=== PATIENT | female | born 1950 | race African-American/Black ===

== ENCOUNTER 2017-08-18 19:52 | Inpatient (IN) | payer OTHER ==
[~2017-08-18] VITALS: Ht 170.2 cm; Wt 96.3 kg
[2017-08-18] MEDS ORDERED: ETOMIDATE (2MG/ML) 20ML VIAL IV ONE ×2 (22:30→23:00)
[2017-08-18] MEDS ORDERED: SUCCINYLCHOLINE CHLORIDE 20 MG/ML 10ML VIAL IV ONE ×2 (22:30→23:00)
[2017-08-18] MEDS ORDERED: SODIUM CHLORIDE 0.9% 3,000 ML IV ONE (22:45)
[2017-08-18] MEDS ORDERED: cefTRIAXone 1GM/10ml IVPUSH 10 ML IV ONE (22:45)
[2017-08-18 23:04] LABS: Hematocrit 30.4 % (36.0-46.0); Hemoglobin 8.8 g/dL (12.2-16.2); Mean Corpuscular Hemoglobin 25.3 pg (28.0-32.0); Mean Corpuscular Hgb Conc. 28.8 g/dL (32.0-36.0); Mean Corpuscular Volume 87.9 fL (80.0-100.0); Platelet Count (auto) 364 10^3/uL (140-450); Red Blood Cells 3.46 10^6/uL (4.0-5.20)
[2017-08-18 23:08] VITALS: BP 51/37
[2017-08-18 23:14] LABS: White Blood Cell 32.3 10^3/uL (4.4-10.8)
[2017-08-18 23:15] LABS: Red Cell Distribution Width 20.1 % (11.8-14.3)
[2017-08-18] MEDS ORDERED: VANCOMYCIN 1GM/250ML 250 ML IV ONE (23:15)
[2017-08-18 23:16] LABS: Basophils % (manual) 0 (0.0-2.0); Blast Cells 0; Eosinophils % (manual) 0 (0-7); Promyelocytes % 0; Reactive Lymphocytes 0
[2017-08-18] MEDS ORDERED: MIDAZOLAM DRIP 50 mg/50mL 50 ML IV SCH (23:26)
[2017-08-18 23:37] LABS: Sodium 134 mmol/L (136-145)
[2017-08-18] MEDS: NOREPINEPHRINE 8 MG/250ML KIT 250 ML IV SCH (23:37)
[2017-08-18 23:38] LABS: Alanine Aminotransferase 8 U/L (13-56); Alkaline Phosphatase 149 U/L (45-117); Anion Gap 27 (5-15); Aspartate Aminotransferase 27 U/L (15-37); BUN/Creatinine Ratio 20.1; Bilirubin, Total 0.5 mg/dL (0.2-1.0); Blood Urea Nitrogen 66 mg/dL (7-18); Calcium 8.7 mg/dL (8.5-10.1); Chloride 100 mmol/L (98-107); GFR African American 18 mL/min; GFR Non-African American 15 mL/min; Glucose 65 mg/dL (74-106)
[2017-08-18 23:39] LABS: Albumin 1.5 g/dL (3.4-5.0); Total Protein 5.8 g/dL (6.4-8.2)
[2017-08-18 23:40] LABS: Blood Alcohol < 3.0 mg/dL (0-5)
[2017-08-18 23:41] LABS: Carbon Dioxide 7 mmol/L (21-32); Potassium 6.6 mmol/L (3.5-5.1)
[2017-08-19] VITALS (41 sets, daily range): BP systolic 50–168; BP diastolic 27–89
[2017-08-19] MEDS ORDERED: CALCIUM GLUC 4.65meq/50ml D5AE 50 ML IV ONE
[2017-08-19] MEDS ORDERED: DEXTROSE (50%) 50ML SYRG IV ONE
[2017-08-19 00:19] LABS: Band Neutrophils % (manual) 12; Lymphocytes % (manual) 21 (10.0-50.0); Metamyelocytes % 3; Monocytes % (manual) 2 (0-12); Myelocytes % 1
[2017-08-19 00:22] LABS: Lactic Acid w/Reflex 7.5 mmol/L (0.4-2.0)
[2017-08-19] MEDS ORDERED: EPINEPHrine HCL INJECTION 4 MG in SODIUM CHL 0.9% 250 ML IV ONE (00:45)
[2017-08-19] MEDS ORDERED: DOPamine 1600MCG/ML D5W 250 ML IV ONE (01:00)
[2017-08-19] MEDS ORDERED: SODIUM BICARBONATE 8.4 % INJ 50ML VIAL IV ONE ×6 (01:00→11:00)
[2017-08-19] MEDS ORDERED: PHENYLEPHRINE IV 250 ML IV ONE ×8 (01:27→22:07)
[2017-08-19] MEDS ORDERED: SODIUM BICARBONATE 50ML VIAL 100 ML in SODIUM CHL 0.9% 1,000 ML IV ONE (01:30)
[2017-08-19] MEDS ORDERED: PHENYLEPHRINE INJ 20 MG in D5W 5% 248 ML IV ONE (01:30)
[2017-08-19] MEDS ORDERED: DEXTROSE 10% 1,000 ML IV ONE ×2 (01:30→14:15)
[2017-08-19 01:45] LABS: Alcohol, Urine < 3.0 mg/dL (0-5); Amphetamine Screen, Urine NEGATIVE (NEGATIVE); Barbiturate Scree,Urine NEGATIVE (NEGATIVE); Benzodiazephine Screen, Urine NEGATIVE (NEGATIVE); Cannabinoid Screen, Urine POSITIVE (NEGATIVE); Cocaine Screen, Urine NEGATIVE (NEGATIVE); Opiate Scree,Urine NEGATIVE (NEGATIVE); Phencyclidine Screen, Urine NEGATIVE (NEGATIVE); Urine Bacteria MANY /hpf (None Seen); Urine Blood 2+ /uL (Negative); Urine Specific Gravity 1.015 (1.001-1.035); Urine WBC 826 /hpf (0 - 5); Urine WBC Clumps PRESENT /hpf (None Seen)
[2017-08-19] MEDS ORDERED: PIPERACILLIN-TAZOB 3.375GM 50 ML IV ONE (02:00)
[2017-08-19] MEDS ORDERED: SODIUM POLYSTYRENE SULF 15GM/60ML SUSP NG ONE (02:30)
[2017-08-19] MEDS ORDERED: VASOPRESSIN 50 UNITS in D5W 5% 247.5 ML IV ONE (02:30)
[2017-08-19] MEDS ORDERED: VASOPRESSIN 20 UNIT/ML ONE ×3 (02:31→13:31)
[2017-08-19] MEDS ORDERED: ALBUMIN 5% 250 ML IV ONE ×3 (02:33→06:30)
[2017-08-19] MEDS ORDERED: NITROGLYCERIN 0.4 MG SL TAB SL PRN (02:45)
[2017-08-19] MEDS ORDERED: ONDANSETRON HCL 4 MG/2 ML VIAL IV PRN (02:45)
[2017-08-19] MEDS ORDERED: VASOPRESSIN 50 UNITS in D5W 5% 247.5 ML IV SCH (02:45)
[2017-08-19] MEDS ORDERED: ALBUTEROL SULF 2.5 MG/0.5ML(0.5%) NEB SOLN NEB PRN (02:45)
[2017-08-19] MEDS ORDERED: ACETAMINOPHEN 325 MG TAB PO PRN (02:45)
[2017-08-19] MEDS ORDERED: MORPHINE SULFATE 4 MG/ML SYR/VIAL IV PRN (02:45)
[2017-08-19] MEDS ORDERED: DEXTROSE (50%) 50ML SYRG IV PRN (02:45)
[2017-08-19] MEDS ORDERED: SODIUM BICARBONATE 50ML VIAL 100 ML in SOD CHL 0.45% 1,000 ML IV ONE (02:45)
[2017-08-19] MEDS ORDERED: SODIUM BICARBONATE 8.4% INJ 50ML SYRINGE ONE ×2 (03:04→05:43)
[2017-08-19] MEDS ORDERED: MIDAZOLAM HCL 5 MG/ML-1ML VIAL ONE (03:08)
[2017-08-19] MEDS ORDERED: MIDAZOLAM HCL 5 MG/ML-1ML VIAL IV ONE (03:15)
[2017-08-19] MEDS ORDERED: LACTULOSE 20Gm/30ML SOLN NG ONE (03:15)
[2017-08-19] MEDS ORDERED: metroNIDAZOLE 500MG/100ML 100 ML IV ONE (04:00)
[2017-08-19] MEDS: LINEZOLID 600MG/300ML 300 ML IV SCH ×2 (04:00→16:59)
[2017-08-19 05:26] LABS: Hemoglobin 7.9 g/dL (12.2-16.2)
[2017-08-19 05:28] LABS: Mean Corpuscular Hemoglobin 25.5 pg (28.0-32.0); Mean Corpuscular Hgb Conc. 29.4 g/dL (32.0-36.0); Mean Corpuscular Volume 86.8 fL (80.0-100.0); Platelet Count (auto) 236 10^3/uL (140-450); Red Cell Distribution Width 19.3 % (11.8-14.3); White Blood Cell 10.7 10^3/uL (4.4-10.8)
[2017-08-19 05:34] LABS: Basophils % (manual) 0 (0.0-2.0); Blast Cells 0; Promyelocytes % 0; Reactive Lymphocytes 0
[2017-08-19 05:45] LABS: Albumin 1.5 g/dL (3.4-5.0); BUN/Creatinine Ratio 19.2; Calcium 7.4 mg/dL (8.5-10.1); Potassium 4.7 mmol/L (3.5-5.1)
[2017-08-19 05:48] LABS: Bilirubin, Total 0.6 mg/dL (0.2-1.0); Total Protein 4.8 g/dL (6.4-8.2)
[2017-08-19] MEDS: PIPERACILLIN-TAZOB 2.25GM 50 ML IV SCH ×3 (06:00→21:44)
[2017-08-19] MEDS: ACCU-CHEK COMFORT CURVE STRIP VI SCH ×3 (06:00→18:00)
[2017-08-19] MEDS: InsuLIN REG 1unit/0.01ml Soln (100units/ml) SC SCH ×3 (06:00→18:57)
[2017-08-19] MEDS ORDERED: ATROPINE SULFATE 0.4 MG/1 ML VIAL ONE (06:08)
[2017-08-19 06:29] LABS: Band Neutrophils % (manual) 14; Eosinophils % (manual) 1 (0-7); Lymphocytes % (manual) 26 (10.0-50.0); Metamyelocytes % 6; Monocytes % (manual) 12 (0-12); Myelocytes % 5
[2017-08-19] MEDS ORDERED: EPINEPHrine HCL INJECTION 4 MG in SODIUM CHL 0.9% 250 ML IV SCH (07:15)
[2017-08-19] MEDS ORDERED: PHENYLEPHRINE HCL 10 MG/ML VL ONE ×3 (08:06→22:08)
[2017-08-19] MEDS ORDERED: SODIUM BICARBONATE 50ML VIAL 150 ML in SODIUM CHL 0.9% 1,000 ML IV SCH (08:15)
[2017-08-19] MEDS: SODIUM BICARBONATE 50ML VIAL 150 ML in SODIUM CHLORIDE 0.9% 1,000 ML IV SCH ×2 (08:34→14:00)
[2017-08-19] MEDS ORDERED: PATIENTS OWN MEDICATION (zyvox 600 MG) IV SCH (10:00)
[2017-08-19] MEDS ORDERED: LACTULOSE 20Gm/30ML SOLN NG SCH (10:00)
[2017-08-19] MEDS ORDERED: SODIUM CHLORIDE 0.9% 2,000 ML IV ONE (11:00)
[2017-08-19] MEDS ORDERED: HYDROCORTISONE SOD SUCC 100 MG/2ML INJ VIAL IV ONE (14:00)
[2017-08-19] MEDS: HYDROCORTISONE SOD SUCC 100 MG/2ML INJ VIAL IV SCH ×2 (14:00→21:44)
[2017-08-19] MEDS: NOREPINEPHRINE 8 MG/250ML KIT 250 ML IV SCH ×2 (14:00→18:50)
[2017-08-19] MEDS: metroNIDAZOLE 500MG/100ML 100 ML IV SCH ×2 (14:16→21:43)
[2017-08-19] MEDS ORDERED: PANTOPRAZOLE 40 MG/10 ML VIAL IV ONE (14:30)
[2017-08-19] MEDS ORDERED: EPINEPHrine HCL 250 ML IV ONE (15:22)
[2017-08-19] MEDS ORDERED: PHENYLEPHRINE INJ 40 MG in SODIUM CHL 0.9% 250 ML IV SCH (15:30)
[2017-08-19] MEDS ORDERED: LOVA20TA4 PO (17:10)
[2017-08-19] MEDS ORDERED: NAPR-476 PO (17:10)
[2017-08-19] MEDS ORDERED: AMLO5TAB2 PO (17:10)
[2017-08-19] MEDS ORDERED: HYDR25TA4 PO (17:10)
[2017-08-19] MEDS ORDERED: NAPR375T27 PO (17:10)
[2017-08-19] MEDS ORDERED: NIF30XLT PO (17:10)
[2017-08-19] MEDS ORDERED: GABA300C10 PO (17:10)
[2017-08-19] MEDS ORDERED: METF-371 PO (17:10)
[2017-08-19] MEDS ORDERED: MET50T GT (17:10)
[2017-08-19] MEDS ORDERED: SODIUM BICARBONATE 50ML VIAL 150 ML in SODIUM CHLORIDE 0.9% 1,000 ML IV SCH (19:00)
[2017-08-19 21:57] LABS: Mean Corpuscular Hemoglobin 25.6 pg (28.0-32.0); Mean Corpuscular Hgb Conc. 28.8 g/dL (32.0-36.0)
[2017-08-19 21:58] LABS: Hematocrit 24.5 % (36.0-46.0); Mean Corpuscular Volume 88.8 fL (80.0-100.0); Red Blood Cells 2.76 10^6/uL (4.0-5.20); Red Cell Distribution Width 19.5 % (11.8-14.3); White Blood Cell 3.3 10^3/uL (4.4-10.8)
[2017-08-19 22:04] LABS: Platelet Count (auto) 30 10^3/uL (140-450)
[2017-08-19 22:22] LABS: Potassium 3.6 mmol/L (3.5-5.1)
[2017-08-19 22:23] LABS: Albumin 1.2 g/dL (3.4-5.0); BUN/Creatinine Ratio 18.4; Bilirubin, Total 0.4 mg/dL (0.2-1.0); Total Protein 3.8 g/dL (6.4-8.2)
[2017-08-19 22:28] LABS: Band Neutrophils % (manual) 0; Basophils % (manual) 0 (0.0-2.0); Blast Cells 0; Eosinophils % (manual) 0 (0-7); Promyelocytes % 0; Reactive Lymphocytes 0
[2017-08-19 22:37] LABS: Lymphocytes % (manual) 53 (10.0-50.0); Metamyelocytes % 3; Monocytes % (manual) 2 (0-12); Myelocytes % 1
[2017-08-20] VITALS (7 sets, daily range): BP systolic 43–52; BP diastolic 23–28
[2017-08-20] MEDS: InsuLIN REG 1unit/0.01ml Soln (100units/ml) SC SCH
[2017-08-20] MEDS: ACCU-CHEK COMFORT CURVE STRIP VI SCH
[2017-08-20] MEDS ORDERED: PANTOPRAZOLE 40 MG/10 ML VIAL IV SCH (10:00)
== END 2017-08-20 05:56 | disposition expired | DRG 871 ==
LOC: ER 19:52 → EDBD 19:52 → OVERFLOW 19:53 → ICU WEST 08-19 12:42
PROVIDERS: ADMIT Nurse Practitioner; ATTEND Internal Medicine
PROC: 5A1935Z Respiratory Ventilation, Less than 24 Consecutive Hours (ICD-10-PCS; principal; 2017-08-18)
PROC: 0BH17EZ Insertion of Endotracheal Airway into Trachea, Via Natural or Artificial Opening (ICD-10-PCS; 2017-08-18)
PROC: 02HV33Z Insertion of Infusion Device into Superior Vena Cava, Percutaneous Approach (ICD-10-PCS; 2017-08-19)
DX: A41.52 Sepsis due to Pseudomonas (principal); G93.41 Metabolic encephalopathy; J96.00 Acute respiratory failure, unspecified whether with hypoxia or hypercapnia; N17.0 Acute kidney failure with tubular necrosis; E43 Unspecified severe protein-calorie malnutrition; J15.0 Pneumonia due to Klebsiella pneumoniae; R65.21 Severe sepsis with septic shock; E87.5 Hyperkalemia; I11.9 Hypertensive heart disease without heart failure; B37.49 Other urogenital candidiasis; N17.9 Acute kidney failure, unspecified; N10 Acute pyelonephritis; A41.1 Sepsis due to other specified staphylococcus; R19.7 Diarrhea, unspecified; R78.89 Finding of other specified substances, not normally found in blood; E86.0 Dehydration; D64.9 Anemia, unspecified; E11.9 Type 2 diabetes mellitus without complications; Z66 Do not resuscitate; Z68.33 Body mass index [BMI] 33.0-33.9, adult; Z89.511 Acquired absence of right leg below knee; Z86.73 Personal history of transient ischemic attack (TIA), and cerebral infarction without residual deficits; Z88.5 Allergy status to narcotic agent
CPT/HCPCS: 31500; 36415; 36556; 36600; 51702; 70450; 71045; 80053; 80307; 80320; 81001; 82140; 82805; 82962; 83605; 84484; 85007; 85027; 86850; 86900; 86901; 86920; 87040; 87045; 87070; 87077; 87081; 87086; 87186; 87205; 93005; 94002; 94003; 96361; 96365; 96367; 96375; 99291; C9113; G0378; J0171; J0330; J0461; J0610; J1815; J2250; J2543; J3490; J7060